=== PATIENT | male | born 1985 ===

== ENCOUNTER 2023-08-27 07:30 | Emergency (ER) | payer SELFPAY ==
[2023-08-27] MEDS ORDERED: Ondansetron PF 4 MG/2 ML Vial ONE (07:56)
[2023-08-27 08:29] LABS: ALT (SGPT) 29 U/L (8-55); AST (SGOT) 21 U/L (5-34); Albumin 4.2 g/dL (3.5-5.0); Alkaline Phosphatase 51 U/L (40-110); Anion Gap 18 mmol/L (10-20); BUN (Urea Nitrogen) 13 mg/dL (8.9-20.6); Bilirubin, Total 0.6 mg/dL (0.2-1.2); Calc. Creatinine Clearance 0 mL/min (70-130); Calcium 8.9 mg/dL (7.8-10.44); Carbon Dioxide 19 mmol/L (22-29); Chloride 107 mmol/L (98-107); Estimated GFR 116; Globulin 2.8 g/dL (2.4-3.5); Glucose 110 mg/dL (70-105); Lipase 40 U/L (8-78); Potassium 3.6 mmol/L (3.5-5.1); Sodium 140 mmol/L (136-145)
[2023-08-27 08:31] LABS: #Basophils 0.1 10x3/uL (0.0-0.2); #Eosinphils 0.5 10x3/uL (0.0-0.5); #Monocytes 0.7 10x3/uL (0.0-1.1); #Neutrophils 5.6 10x3/uL (1.5-8.4); %Basophils 0.9 % (0.0-2.0); %Eosinophils 4.7 % (0.0-6.0); %Lymphocytes 29.6 % (18.0-47.0); %Neutrophils 57.5 % (40.0-75.0); Hematocrit 43.1 % (38.8-50.0); Hemoglobin 15.5 g/dL (13.5-17.5); Mean Corpuscular Hemoglobin 29.6 pg (27.0-33.0); Mean Corpuscular Volume 82.3 fl (81.2-95.1); Mean Platelet Volume 10.4 fl (7.4-10.4); Platelet Count 225 10x3/uL (150-450); RBC Distribution Width 12.7 % (11.5-14.5); Red Blood Cell (RBC) Count 5.24 10x6/uL (4.32-5.72); White Blood Cell (WBC) Count 9.7 10x3/uL (3.5-10.5)
[2023-08-27 09:08] LABS: Troponin I Less than 0.010 ng/mL (< 0.028)
== END 2023-08-27 09:56 | disposition home or self-care (01) ==
LOC: CSHERS 07:30
DX: R07.9 Chest pain, unspecified (principal); R11.10 Vomiting, unspecified
CPT/HCPCS: 71045; 80053; 83690; 84484; 85025; 93005; 96374; J2405